=== PATIENT | male | born 1985 ===

== ENCOUNTER → 2024-12-09 08:57 | Outpatient (REF) | payer OTHER, SELFPAY | LOC: HWRAD 08:57 | PROVIDERS: ATTENDING PHYSICIAN Physician Assistant | DX: M25.511 Pain in right shoulder (principal); M25.512 Pain in left shoulder | CPT/HCPCS: 73030 ==

== ENCOUNTER → 2025-01-01 06:55 | Outpatient (REF) | payer OTHER, SELFPAY | LOC: HWRAD 06:55 | PROVIDERS: ATTENDING PHYSICIAN Physician Assistant | DX: R79.89 Other specified abnormal findings of blood chemistry (principal) | CPT/HCPCS: 76700 ==